=== PATIENT | female | born 1965 | race Caucasian/White ===

== ENCOUNTER 2022-05-27 07:48 | Day surgery (SDC) | payer OTHER ==
[~2022-05-27] VITALS: Ht 157.5 cm; Wt 107.5 kg
[2022-05-27] MEDS ORDERED: diphenhydrAMINE 50 MG/ML VIAL ONE (09:02)
[2022-05-27] MEDS ORDERED: fentaNYL citrate 0.05 MG/ML VIAL ONE ×2 (09:02→09:03)
[2022-05-27] MEDS ORDERED: LIDOCAINE 2% 100 MG/5 ML UJET TP ONE (09:03)
[2022-05-27] MEDS ORDERED: MIDAZOLAM 5 MG/5 ML VIAL ONE (09:03)
[2022-05-27] MEDS ORDERED: fentaNYL citrate 0.05 MG/ML VIAL IVP ONE (11:45)
[2022-05-27] MEDS ORDERED: MIDAZOLAM 5 MG/5 ML VIAL IV ONE (11:45)
== END 2022-05-27 11:05 | disposition home or self-care (01) ==
LOC: MMU 07:48 → MDS 07:48
PROVIDERS: ATTEND Internal Medicine Gastroenterology
DX: Z12.11 Encounter for screening for malignant neoplasm of colon (principal); K29.50 Unspecified chronic gastritis without bleeding; B96.81 Helicobacter pylori [H. pylori] as the cause of diseases classified elsewhere; K57.30 Diverticulosis of large intestine without perforation or abscess without bleeding; K52.9 Noninfective gastroenteritis and colitis, unspecified; K44.9 Diaphragmatic hernia without obstruction or gangrene; F32.9 Major depressive disorder, single episode, unspecified; E66.9 Obesity, unspecified; M17.0 Bilateral primary osteoarthritis of knee; Z90.49 Acquired absence of other specified parts of digestive tract; Z79.899 Other long term (current) drug therapy; Z68.41 Body mass index [BMI] 40.0-44.9, adult; Z98.84 Bariatric surgery status
CPT/HCPCS: 43239; 45380; 45385; 87426; 88305; 88312; 88313; 88342; J2250; J3010; J1200